=== PATIENT | female | born 1990 ===

== ENCOUNTER 2016-12-12 21:05 | Emergency (ER) | payer OTHER ==
[2016-12-12 21:18] VITALS: O2SAT 99
[2016-12-12] MEDS ORDERED: Sodium Chloride 0.9% 1,000 ML IV ONE (21:37)
[2016-12-12 21:54] LABS: BASO % 0.2 % (0.0-2.0); EOS % 0.3 % (0.0-4.0); HEMATOCRIT 42.3 % (34.0-47.0); LYMPH # 1.7 K/uL (1.0-4.3); LYMPH % 12.5 % (20.0-40.0); MEAN CELL VOLUME 87.3 fL (81.0-99.0); MEAN CORPUSCULAR HEMOGLOBIN 29.5 pg (27.0-31.0); MEAN CORPUSCULAR HGB CONC 33.8 g/dL (33.0-37.0); MEAN PLATELET VOLUME 7.7 fL (7.2-11.7); MONO # 0.7 K/uL (0.0-0.8); RED CELL DISTRIBUTION WIDTH 13.6 % (11.5-14.5); WHITE BLOOD COUNT 13.8 K/uL (4.8-10.8)
[2016-12-12 22:00] LABS: RBC URINE 2 /hpf (0-3); URINE BACTERIA FEW (<OCC); URINE BILIRUBIN NEGATIVE (NEGATIVE); URINE BLOOD NEGATIVE (NEGATIVE); URINE COLOR Yellow (YELLOW); URINE GLUCOSE (UA) NORMAL (Normal); URINE KETONE TRACE mg/dL (NEGATIVE); URINE LEUKOCYTE ESTERASE TRACE Leu/uL (Negative); URINE PROTEIN NEGATIVE (NEGATIVE); URINE UROBILINOGEN NORMAL mg/dL (0.2-1.0); WBC URINE 11 /hpf (0-5)
[2016-12-12 22:02] LABS: CHLORIDE 100 mmol/L (98-107); POTASSIUM 3.6 mmol/L (3.6-5.2); SODIUM 138 mmol/L (132-148)
[2016-12-12] MEDS ORDERED: Sodium Chloride 0.9% 1,000 ML ONE (22:03)
[2016-12-12 22:04] LABS: BILIRUBIN,TOTAL 0.4 mg/dL (0.2-1.3); GFR AFRICAN-AMERICAN > 60
[2016-12-12 22:05] LABS: ALB/GLOB RATIO 1.4 (1.0-2.1); ALKALINE PHOSPHATASE 96 U/L (38-126); ALT/SGPT 34 U/L (9-52); AST/SGOT 28 U/L (14-36); BLOOD UREA NITROGEN 18 mg/dL (7-17); CALCIUM 9.2 mg/dl (8.6-10.4); CARBON DIOXIDE 24 mmol/L (22-30); GLUCOSE,RANDOM 83 mg/dL (65-105); MAGNESIUM 2.3 mg/dL (1.6-2.3); TOTAL PROTEIN 8.4 g/dL (6.3-8.3)
[2016-12-12 22:40] VITALS: BP 108/66; PULSE 106; RESP 20; TEMP 98.4
[2016-12-12] MEDS ORDERED: levETIRAcetam 1,000 MG in Sodium Chloride 0.9% 100 ML IVPB SCH (23:30)
--- NOTE | 2016-12-12 23:48 | C.PDOC ---
Time Seen by Provider: 12/12/16 21:31 Chief Complaint (Nursing): Seizure History Per: Patient, EMS, Family Recent Seizure Activity Began: Hours Ago: (today) Number Of Seizures: Multiple Length Of Seizures (Duration): Seconds Quality Of Seizure: Generalized Precipitating Factor(s): None Associated Symptoms: Bit Tongue Post-ictal Period: Duration Unknown Severity: Moderate Additional History Per: Prior Records Past Medical History Reviewed: Historical Data, Nursing Documentation, Vital Signs Vital Signs: Last Vital Signs Temp 98.4 F 12/12/16 22:39 Pulse 106 H 12/12/16 22:39 Resp 20 12/12/16 22:39 BP 108/66 12/12/16 22:39 Pulse Ox 99 12/12/16 23:50 - Medical History PMH: Seizures (has been off medication for 1 year) Surgical History: No Surg Hx Family History: States: Unknown Family Hx - Social History Hx Tobacco Use: No Hx Alcohol Use: No Hx Substance Use: No Review Of Systems Except As Marked, All Systems Reviewed And Found Negative. Constitutional: Negative for: Fever, Weakness Cardiovascular: Negative for: Chest Pain Respiratory: Negative for: Shortness of Breath Gastrointestinal: Negative for: Vomiting, Abdominal Pain Musculoskeletal: Negative for: Neck Pain Skin: Negative for: Rash Neurological: Positive for: Seizures. Negative for: Weakness, Numbness, Headache Physical Exam - Physical Exam Appears: Non-toxic, No Acute Distress Skin: Normal Color, Warm, Dry, No Rash Head: Swelling (right eyebrow area), No Laceration Eye(s): bilateral: PERRL, EOMI Tongue: Bite Neck: Normal ROM, No Midline Cervical Tenderness, No Step Off Deformity, Supple Chest: Symmetrical, No Deformity Cardiovascular: Rhythm Regular Respiratory: Normal Breath Sounds, No Accessory Muscle Use Gastrointestinal/Abdominal: Soft, No Tenderness Back: No CVA Tenderness Extremity: Normal ROM, No Deformity Neurological/Psych: Oriented x3, Normal Motor, Normal Sensation ED Course And Treatment - Laboratory Results Result Diagrams: 12/12/16 21:44 12/12/16 21:44 Lab Interpretation: No Acute Changes Urine POC: Negative O2 Sat by Pulse Oximetry: 99 Pulse Ox Interpretation: Normal - CT Scan/US CT head Other Rad Studies (CT/US): Read By Radiologist, Radiology Report Reviewed CT/US Interpretation: NAD - Physician Consult Information Physician Contacted: Raheem Renae (Neurology) Outcome Of Conversation: He states pt can be loaded with 1000mg of Keppra and discharged home on Keppra 500mg BID with outpt f/up. Progress - Interventions Interventions:: Observation, Intravenous fluid - Medications Administered Intravenous: Other (Keppra) - Data Reviewed Data Reviewed: Lab, Diagnostic imaging, Old records - Patient Status Patient status: Mostly improved - Continuity of Care Discussed patient case with:: Patient, Family-HIPPA compliant, ED Nurse Discussed pt. case with corporate health consultant/specialty: Neurology - Patient Plan Patient Plan: Discharge Disposition Counseled Patient/Family Regarding: Studies Performed, Diagnosis, Need For Followup, Rx Given - Disposition Referrals: [facility] at [facility] [Outside] Greg Meyres MD [Staff Provider] - Disposition: HOME/ ROUTINE Disposition Time: 00:05 Condition: IMPROVED Additional Instructions: Follow up for further evaluation and treatment. Return to the ER if you develop another seizure, worsening of symptoms or if you have any other concerns. Prescriptions: Levetiracetam [Keppra] 500 mg PO BID #60 tablet Instructions: Epilepsy (ED) Print Language: ROMANIAN - Clinical Impression Clinical Impression: Epileptic seizure
--- NOTE | 2016-12-13 08:30 | CT ---
PROCEDURE: CT HEAD WITHOUT CONTRAST. HISTORY: s/p seizure, hit head COMPARISON: None available. TECHNIQUE: Axial computed tomography images were obtained through the head/brain without intravenous contrast. Radiation dose: Total exam DLP = 719 mGy-cm. This CT exam was performed using one or more of the following dose reduction techniques: Automated exposure control, adjustment of the mA and/or kV according to patient size, and/or use of iterative reconstruction technique. FINDINGS: HEMORRHAGE: No intracranial hemorrhage. BRAIN: No mass effect or edema. No atrophy or chronic microvascular ischemic changes. VENTRICLES: Unremarkable. No hydrocephalus. CALVARIUM: Unremarkable. PARANASAL SINUSES: Unremarkable as visualized. No significant inflammatory changes. MASTOID AIR CELLS: Unremarkable as visualized. No inflammatory changes. OTHER FINDINGS: None. IMPRESSION: No acute intracranial abnormality. If focal neurologic deficit persists, consider MRI. These findings were preliminarily reported at 10:49 p.m. on 12/12/[address] Sofia Saxena from [facility].
== END 2016-12-13 00:19 | disposition home or self-care (01) ==
LOC: SUPCPDRO 21:05 → EDBD 21:05 → C.ER 21:05
DX: G40.909 Epilepsy, unspecified, not intractable, without status epilepticus (principal)
CPT/HCPCS: 70450; 80053; 80324; 80345; 80346; 80349; 80353; 80358; 80361; 81001; 83735; 83992; 84703; 85025; 99285; J1953; J7040

== ENCOUNTER 2017-07-22 22:21 | Emergency (ER) | payer OTHER ==
[2017-07-22] MEDS ORDERED: Sodium Chloride 0.9% 1,000 ML IV ONE ×2 (22:55→23:44)
[2017-07-22 23:08] LABS: BASO # 0.1 K/uL (0.0-0.2); BASO % 0.5 % (0.0-2.0); EOS # 0.2 K/uL (0.0-0.7); EOS % 1.7 % (0.0-4.0); HEMATOCRIT 42.4 % (34.0-47.0); LYMPH # 3.7 K/uL (1.0-4.3); LYMPH % 29.4 % (20.0-40.0); MEAN CELL VOLUME 87.5 fL (81.0-99.0); MEAN CORPUSCULAR HEMOGLOBIN 28.9 pg (27.0-31.0); MEAN PLATELET VOLUME 7.6 fL (7.2-11.7); MONO % 7.8 % (0.0-10.0); NRBC % 0.2 % (0.0-2.0); RED CELL DISTRIBUTION WIDTH 12.5 % (11.5-14.5); WHITE BLOOD COUNT 12.7 K/uL (4.8-10.8)
[2017-07-22] MEDS ORDERED: Sodium Chloride 0.9% 1,000 ML ONE ×2 (23:09→23:50)
[2017-07-22 23:15] LABS: RBC URINE 1 /hpf (0-3); URINE BACTERIA OCC (<OCC); URINE BILIRUBIN NEGATIVE (NEGATIVE); URINE BLOOD NEGATIVE (NEGATIVE); URINE COLOR Straw (YELLOW); URINE GLUCOSE (UA) NORMAL (Normal); URINE KETONE NEGATIVE (NEGATIVE); URINE LEUKOCYTE ESTERASE TRACE Leu/uL (Negative); URINE PROTEIN NEGATIVE (NEGATIVE); URINE UROBILINOGEN NORMAL mg/dL (0.2-1.0); WBC URINE 9 /hpf (0-5)
[2017-07-22 23:18] LABS: ALB/GLOB RATIO 1.4 (1.0-2.1); ALKALINE PHOSPHATASE 97 U/L (38-126); ALT/SGPT 49 U/L (9-52); AST/SGOT 28 U/L (14-36); BILIRUBIN,TOTAL 0.6 mg/dL (0.2-1.3); BLOOD UREA NITROGEN 14 mg/dL (7-17); CARBON DIOXIDE 22 mmol/L (22-30); CHLORIDE 100 mmol/L (98-107); GFR AFRICAN-AMERICAN > 60; GLUCOSE,RANDOM 96 mg/dL (65-105); POTASSIUM 3.7 mmol/L (3.6-5.2); SODIUM 134 mmol/L (132-148); TOTAL PROTEIN 7.9 g/dL (6.3-8.3)
[2017-07-22 23:19] LABS: INR 1.1
--- NOTE | 2017-07-22 23:35 | C.PDOC ---
History Of Present Illness <Lety Coronado - Last Filed: 07/23/17 03:10> <Zach Vargas - Last Filed: 07/23/17 13:23> 27 year old female with a Hx of seizures presents to the ER with a complaint of a reported seizure as per patient's family at bedside. As per family seizure activity lasted approximately 1 minute then patient regain consciousness. Patient has not been complaint with her keppra. Denies headache, dizziness, nausea, or vomiting. (Zach Vargas) <Lety Coronado - Last Filed: 07/23/17 03:10> History Per: Patient, Family History/Exam Limitations: no limitations Onset/Duration Of Symptoms: Hrs Current Symptoms Are (Timing): Still Present Number Of Syncopal Episodes: 1 Activity At Onset Of Symptoms: Other (Not known) Associated Symptoms Preceding Syncopal Episode: No Predromal Symptoms (Sudden Onset) Seizure Or Post-ictal Symptoms: Generalized Seizure Activity. denies: Post- ictal Period, Incontinent Of Urine, Incontinent Of Stool, Bit Tongue Possible Causative Factor(s): Other (Not known) Fall Associated With With Symptoms: Yes, No Injury As Result Of Fall Recent travel outside of the [place]: No - Symptoms Of CVA Associated Symptoms: denies: Impaired Speech, Seizure Activity, New Vision Deficit(Left), New Vision Deficit(Right), Decreased Ability To Walk, New Confusion <Zach Vargas - Last Filed: 07/23/17 13:23> Time Seen by Provider: 07/22/17 22:47 Chief Complaint (Nursing): Dizziness/Lightheaded Past Medical History Reviewed: Historical Data, Nursing Documentation, Vital Signs - Medical History PMH: Seizures (has been off medication for 1 year) Surgical History: No Surg Hx Family History: States: Unknown Family Hx - Social History Hx Tobacco Use: No Hx Alcohol Use: No Hx Substance Use: No <Zach Vargas - Last Filed: 07/23/17 13:23> Vital Signs: Last Vital Signs Temp 98.6 F 07/23/17 03:26 Pulse 107 H 07/23/17 03:26 Resp 20 07/23/17 03:26 BP 106/69 07/23/17 03:26 Pulse Ox 98 07/23/17 03:26 Review Of Systems Constitutional: Negative for: Fever, Chills Gastrointestinal: Negative for: Nausea, Vomiting, Diarrhea Neurological: Positive for: Seizures. Negative for: Headache, Dizziness <Zach Vargas - Last Filed: 07/23/17 13:23> Physical Exam - Physical Exam Appears: Non-toxic, No Acute Distress Skin: Normal Color, Warm, Dry Head: Atraumatic, Normacephalic Eye(s): bilateral: Normal Inspection, PERRL, EOMI Oral Mucosa: Moist Neck: Normal, No Midline Cervical Tenderness, No Paracervical Tenderness, Supple Chest: Symmetrical, No Tenderness Cardiovascular: Rhythm Regular Respiratory: Normal Breath Sounds, No Rales, No Rhonchi, No Wheezing Gastrointestinal/Abdominal: Soft, No Tenderness Extremity: Normal ROM (x4) Neurological/Psych: Oriented x3, Normal Speech, Normal Cognition <Zach Vargas - Last Filed: 07/23/17 13:23> ED Course And Treatment - Laboratory Results Result Diagrams: 07/22/17 23:02 07/22/17 23:02 Pulse Ox Interpretation: Normal Reevaluation Time: 03:10 Reassessment Condition: Improved <Lety Coronado - Last Filed: 07/23/17 03:10> - Laboratory Results Result Diagrams: 07/22/17 23:02 07/22/17 23:02 O2 Sat by Pulse Oximetry: 98 (Room air) Pulse Ox Interpretation: Normal <Zach Vargas - Last Filed: 07/23/17 13:23> Medical Decision Making <Lety Coronado - Last Filed: 07/23/17 03:10> <Zach Vargas - Last Filed: 07/23/17 13:23> Medical Decision Making: CT head, EKG, blood work, CXR, and urinalysis ordered. IV fluids and tylenol administered. 100 endorsed to night team pending dimer, thyroid stuides final reassessment and dispo. (Zach Vargas) Disposition Counseled Patient/Family Regarding: Studies Performed, Diagnosis, Need For Followup - Disposition Disposition Time: 03:10 <Lety Coronado - Last Filed: 07/23/17 03:10> <Zach Vargas - Last Filed: 07/23/17 13:23> - Disposition Referrals: [facility] at [facility] [Outside] [facility] [Outside] Disposition: HOME/ ROUTINE Condition: FAIR Prescriptions: Lorazepam [Ativan] 0.5 mg PO Q12H PRN #14 tab PRN Reason: Anxiety Instructions: Epilepsy (DC), Anxiety (ED) Forms: [employer] (Vietnamese) - Clinical Impression Clinical Impression: Epileptic seizure, Anxiety <Lety Coronado - Last Filed: 07/23/17 03:10> - Scribe Statement The provider has reviewed the documentation as recorded by the Scribe <Zach Vargas - Last Filed: 07/23/17 13:23> - Scribe Statement Cecil Farris All medical record entries made by the Scribe were at my direction and personally dictated by me. I have reviewed the chart and agree that the record accurately reflects my personal performance of the history, physical exam, medical decision making, and the department course for this patient. I have also personally directed, reviewed, and agree with the discharge instructions and disposition. (Zach Vargas)
--- NOTE | 2017-07-23 00:17 | CT ---
EXAM: CT Head Without Intravenous Contrast CLINICAL HISTORY: 27 years old, female; Pain; Headache; Patient HX: 12-12-16; Additional info: Seizure TECHNIQUE: Axial computed tomography images of the head/brain without intravenous contrast. All CT scans at this facility use one or more dose reduction techniques, viz.: automated exposure control; ma/kV adjustment per patient size (including targeted exams where dose is matched to indication; i.e. head); or iterative reconstruction technique. COMPARISON: CT - HEAD W/O CONTRAST 2016-12-12 21:58 FINDINGS: Brain: No intracranial hemorrhage. No mass. No definite edema. Possible mild cerebellar tonsillar ectopia, incompletely imaged but grossly stable. Ventricles: No hydrocephalus. Bones/joints: No acute fracture. Soft tissues: Unremarkable. Sinuses: No acute sinusitis. Mastoid air cells: No mastoid effusion. Orbits: Unremarkable as visualized. IMPRESSION: 1. No acute intracranial abnormality. 2. Incidental/non-acute findings are described above.
[2017-07-23 00:50] LABS: VENOUS BLOOD GAS BASE EXCESS -3.5 mmol/L (0.0-2.0); VENOUS BLOOD GAS PCO2 41 mmHg (40-60); VENOUS BLOOD PH 7.34 (7.32-7.43)
[2017-07-23 03:27] VITALS: BP 106/69; PULSE 107; RESP 20; TEMP 98.6; O2SAT 98
--- NOTE | 2017-07-23 10:22 | RAD ---
HISTORY: seizure COMPARISON: None available. TECHNIQUE: Chest, one view. FINDINGS: In a monahan limited by habitus. LUNGS: No focal consolidation. Please note that chest x-ray has limited sensitivity for the detection of pulmonary masses. PLEURA: No significant pleural effusion identified. No definite pneumothorax . CARDIOVASCULAR: The cardiomediastinal silhouette appears within normal limits of size. OSSEOUS STRUCTURES: No acute osseous abnormality identified. VISUALIZED UPPER ABDOMEN: Unremarkable. OTHER FINDINGS: None. IMPRESSION: No focal consolidation, significant pleural effusion, or definite pneumothorax identified.
--- NOTE | 2017-07-23 13:36 | CARD ---
APPROVED REPORT EKG Measurement Heart [id number] <Conclusion> Sinus tachycardia Cannot rule out Anterior infarct, age undetermined Abnormal ECG
== END 2017-07-23 03:27 | disposition home or self-care (01) ==
LOC: C.ER 22:21
DX: G40.909 Epilepsy, unspecified, not intractable, without status epilepticus (principal); F41.9 Anxiety disorder, unspecified
CPT/HCPCS: 70450; 71010; 80053; 81001; 82803; 84439; 84443; 84703; 85025; 85378; 85610; 85730; 87086; 87181; 93005; 96361; 96374; 99285; J2060; J7040

== ENCOUNTER 2017-12-11 00:15 | Emergency (ER) | payer SELFPAY ==
[2017-12-11 00:16] VITALS: BMI 32.2
--- NOTE | 2017-12-11 00:29 | C.PDOC ---
History Of Present Illness 27 year old female, whose PMHx includes seizures, is brought to the ED by ambulance after patient had a witnessed seizure around 40 minutes [employer]NA[employer]IG[employer]. Seizure was witnessed by patient's family, who state that prior to tonight, patient last had a seizure around 3 months ago. Since then, patient has been taking 500mg Keppra twice/day as prescribed. Patient states she has been compliant with her medication, including today. Patient denies fever, chills, tongue bite , urinary/bowel incontinence. Chief Complaint (Nursing): Seizure History Per: Patient, EMS, Family History/Exam Limitations: no limitations Recent Seizure Activity Began: Mins Ago: (40) Number Of Seizures: One Length Of Seizures (Duration): Unknown Additional History Per: Patient, EMS, Family Past Medical History Reviewed: Historical Data, Nursing Documentation, Vital Signs Vital Signs: Last Vital Signs Temp 98.6 F 12/11/17 00:17 Pulse 98 H 12/11/17 01:42 Resp 20 12/11/17 01:42 BP 97/58 L 12/11/17 01:42 Pulse Ox 100 12/11/17 01:42 - Medical History PMH: Seizures Family History: States: Unknown Family Hx - Social History Hx Tobacco Use: No Hx Alcohol Use: No Hx Substance Use: No Review Of Systems Constitutional: Negative for: Fever, Chills Genitourinary: Negative for: Incontinence Neurological: Positive for: Seizures Physical Exam - Physical Exam Appears: Non-toxic, No Acute Distress Skin: Normal Color, Warm, Dry Head: Atraumatic, Normacephalic Eye(s): bilateral: Normal Inspection Oral Mucosa: Moist Neck: Supple Chest: Symmetrical, No Deformity, No Tenderness Cardiovascular: Rhythm Regular, No Murmur Respiratory: Normal Breath Sounds, No Rales, No Rhonchi, No Wheezing Gastrointestinal/Abdominal: Soft, No Tenderness, No Guarding, No Rebound Extremity: Normal ROM, Capillary Refill (less than 2 seconds ) Neurological/Psych: Other (alert, conscious, no focal deficits ) ED Course And Treatment - Laboratory Results Result Diagrams: 12/11/17 00:49 12/11/17 00:49 O2 Sat by Pulse Oximetry: 99 (on RA) Pulse Ox Interpretation: Normal Progress Note: Bloodwork and EKG ordered. Keppra IVP and IV Fluids administered. Disposition Counseled Patient/Family Regarding: Diagnosis - Disposition Referrals: [facility] at [facility] [Outside] Disposition: HOME/ ROUTINE Disposition Time: 03:30 Condition: STABLE Instructions: Seizures, Adult (DC) Forms: [facility] (Zambian), Gen Discharge Inst Chinese Print Language: ENGLISH - POA Present On Arrival: None - Clinical Impression Clinical Impression: Seizure - Scribe Statement The provider has reviewed the documentation as recorded by the Scribe (Kesha Jiang) Provider Attestation: All medical record entries made by the Scribe were at my direction and personally dictated by me. I have reviewed the chart and agree that the record accurately reflects my personal performance of the history, physical exam, medical decision making, and the department course for this patient. I have also personally directed, reviewed, and agree with the discharge instructions and disposition.
[2017-12-11] MEDS ORDERED: Sodium Chloride 0.9% 1,000 ML IV ONE (00:30)
[2017-12-11] MEDS ORDERED: Sodium Chloride 0.9% 1,000 ML ONE (00:42)
[2017-12-11 00:54] LABS: BASO # 0.1 K/uL (0.0-0.2); BASO % 0.4 % (0.0-2.0); EOS # 0.1 K/uL (0.0-0.7); EOS % 1.2 % (0.0-4.0); HEMOGLOBIN 14.3 g/dL (11.0-16.0); LYMPH # 3.2 K/uL (1.0-4.3); LYMPH % 24.9 % (20.0-40.0); MEAN CELL VOLUME 87.4 fL (81.0-99.0); MEAN CORPUSCULAR HEMOGLOBIN 30.1 pg (27.0-31.0); MEAN CORPUSCULAR HGB CONC 34.5 g/dL (33.0-37.0); MEAN PLATELET VOLUME 7.5 fL (7.2-11.7); NEUT # 8.4 K/uL (1.8-7.0); NEUT % 65.5 % (50.0-75.0); RBC 4.75 Mil/uL (3.80-5.20); RED CELL DISTRIBUTION WIDTH 12.9 % (11.5-14.5); WHITE BLOOD COUNT 12.8 K/uL (4.8-10.8)
[2017-12-11 01:07] LABS: ALB/GLOB RATIO 1.2 (1.0-2.1); ALBUMIN 4.5 g/dL (3.5-5.0); ALT/SGPT 29 U/L (9-52); AST/SGOT 26 U/L (14-36); BLOOD UREA NITROGEN 14 mg/dL (7-17); CALCIUM 9.1 mg/dl (8.6-10.4); GFR AFRICAN-AMERICAN > 60; GFR NON-AFRICAN AMERICAN > 60
--- NOTE | 2017-12-11 03:10 | CT ---
EXAM: CT Head Without Intravenous Contrast CLINICAL HISTORY: 27 years old, female; Pain; Headache and other: Seizure; Patient HX: 07-22-17 TECHNIQUE: Axial computed tomography images of the head/brain without intravenous contrast. All CT scans at this facility use one or more dose reduction techniques, viz.: automated exposure control; ma/kV adjustment per patient size (including targeted exams where dose is matched to indication; i.e. head); or iterative reconstruction technique. Coronal and sagittal reformatted images were created and reviewed. COMPARISON: CT - HEAD W/O CONTRAST 2017-07-22 23:22 FINDINGS: Brain: Unremarkable. No hemorrhage. No significant white matter disease. No edema. Ventricles: Unremarkable. No ventriculomegaly. Bones/joints: Unremarkable. No acute fracture. Soft tissues: Unremarkable. Sinuses: Unremarkable as visualized. No acute sinusitis. Mastoid air cells: Unremarkable as visualized. No mastoid effusion. IMPRESSION: No evidence of an acute intracranial abnormality.
[2017-12-11 03:44] VITALS: BP 103/65; PULSE 89; RESP 16; TEMP 98; O2SAT 100
== END 2017-12-11 03:45 | disposition home or self-care (01) ==
LOC: C.ER 00:15
DX: R56.9 Unspecified convulsions (principal); Z79.899 Other long term (current) drug therapy
CPT/HCPCS: 70450; 80053; 82948; 85025; 99285; J1953; J7040